=== PATIENT | male | born 1995 | race Caucasian/White ===

== ENCOUNTER 2021-09-03 00:58 | Emergency (ER) | payer OTHER ==
[~2021-09-03] VITALS: Ht 182.9 cm; Wt 97.7 kg
[2021-09-03 01:45] LABS: BASO # 0.1 10^3/uL (0.0-0.2); BASO % 0.5 % (0.0-1.0); EOS # 0.1 10^3/uL (0.0-0.5); EOS % 1.2 % (0.0-3.0); HEMATOCRIT 45.3 % (42.0-52.0); HEMOGLOBIN 15.6 g/dl (13.5-17.5); LYMPH # 4.8 10^3/uL (1.5-5.0); LYMPH % 42.8 % (24.0-44.0); MEAN CORPUSCULAR HEMOGLOBIN 31.6 pg (27.0-33.0); MEAN CORPUSCULAR HGB CONC 34.4 g/dl (32.0-36.5); MEAN CORPUSCULAR VOLUME 91.7 fl (80.0-96.0); MONO # 0.9 10^3/uL (0.0-0.8); MONO % 8.2 % (2.0-8.0); NEUTROPHILS # 5.3 10^3/uL (1.5-8.5); NEUTROPHILS % 47.1 % (36.0-66.0); PLATELET COUNT, AUTOMATED 266 10^3/uL (150-450); RED BLOOD COUNT 4.94 10^6/uL (4.30-6.10); WHITE BLOOD COUNT 11.2 10^3/uL (4.0-10.0)
[2021-09-03 02:32] LABS: ALT/SGPT 19 U/L (12-78); BILIRUBIN,DIRECT 0.1 MG/DL (0.0-0.2); BILIRUBIN,TOTAL 0.2 MG/DL (0.2-1.0); BLOOD UREA NITROGEN 15 MG/DL (7-18); CALCIUM LEVEL 8.6 MG/DL (8.5-10.1); CARBON DIOXIDE LEVEL 28 MEQ/L (21-32); CHLORIDE LEVEL 106 MEQ/L (98-107); CREATININE FOR GFR 1.11 MG/DL (0.70-1.30); GLOMERULAR FILTRATION RATE > 60.0 (>60); GLUCOSE, FASTING 93 MG/DL (70-100); LIPASE 91 U/L (73-393); POTASSIUM SERUM 3.9 MEQ/L (3.5-5.1); SODIUM LEVEL 138 MEQ/L (136-145); TOTAL PROTEIN 6.8 GM/DL (6.4-8.2)
[2021-09-03 04:22] LABS: GC DNA AMPLIFICATION NEGATIVE (NEGATIVE)
[2021-09-03] MEDS ORDERED: IBUP80TA PO (04:54)
[2021-09-03] MEDS ORDERED: LEVO500T4 PO (04:54)
[2021-09-03] MEDS ORDERED: LevoFLOXacin 500 MG TABLET PO ONE (04:55)
[2021-09-03 05:09] VITALS: BP 158/70
== END 2021-09-03 05:07 | disposition home or self-care (01) ==
LOC: M ED 00:58
DX: N45.1 Epididymitis (principal); F17.200 Nicotine dependence, unspecified, uncomplicated

== ENCOUNTER 2022-05-06 08:48 | Emergency (ER) | payer OTHER ==
[~2022-05-06] VITALS: Ht 193 cm; Wt 97.8 kg
[2022-05-06 08:48] VITALS: BP 132/76
[~2022-05-06 08:48] MED LIST: IBUP80TA PO; LEVO1TAB39 PO
[2022-05-06] MEDS ORDERED: ACET-683 PO (09:00)
[2022-05-06] MEDS ORDERED: ERYT5OIN25 OS (09:00)
[2022-05-06] MEDS ORDERED: METH-1164 PO (09:00)
[2022-05-06] MEDS ORDERED: GABA-282 PO (09:00)
[2022-05-06] MEDS ORDERED: FLUORESCEIN OPHTH 1 MG STRIP OU ONE (11:00)
[2022-05-06] MEDS ORDERED: PROPARACAINE 0.5% OPHTH SOL 15ML OU ONE (11:00)
[2022-05-06] MEDS ORDERED: DOXYCYCLINE HYCLATE 100MG TABLET PO ONE (11:25)
[2022-05-06] MEDS ORDERED: DOXY-443 PO (11:35)
== END 2022-05-06 11:54 | disposition home or self-care (01) ==
LOC: M ED 08:48
DX: H00.024 Hordeolum internum left upper eyelid (principal)